=== PATIENT | male | born 1980 | race Caucasian/White ===

== ENCOUNTER 2025-03-13 20:24 | Emergency (ER) | payer OTHER ==
[~2025-03-13] VITALS: Ht 203.2 cm; Wt 83.0 kg
[2025-03-13] MEDS ORDERED: CEPHALEXIN MONOHYDRATE 250 MG CAP ONE (21:16)
[2025-03-13] MEDS: CEPHALEXIN MONOHYDRATE 250 MG CAP PO SCH (21:17)
[2025-03-13] MEDS: KETOROLAC TROMETHAMINE 30 MG/ML VIAL IM STA (21:17)
[2025-03-13] MEDS ORDERED: KETOROLAC TROME10 MG PO (21:41)
[2025-03-13] MEDS ORDERED: CEPHALEXIN500 MG PO (21:41)
[2025-03-13 22:00] VITALS: PULSE 84; RESP 16; TEMP 98.8
[2025-03-13 22:05] VITALS: BP 118/79; PULSE 84; RESP 16; TEMP 98.8; O2SAT 98
== END 2025-03-13 22:08 | disposition home or self-care (01) ==
LOC: FSED 20:36
DX: R21 Rash and other nonspecific skin eruption (principal); S40.861A Insect bite (nonvenomous) of right upper arm, initial encounter
CPT/HCPCS: 96372; 99283; J1885